=== PATIENT | female | born 1985 | race Caucasian/White ===

== ENCOUNTER 2020-08-22 15:00 | Outpatient (RCR) | payer BC | END 2020-08-28 | disposition home or self-care (01) | LOC: MKS.ESL.PT | DX: M54.5 Low back pain (principal) ==

== ENCOUNTER 2020-10-08 12:45 | Outpatient (RCR) | payer BC | END 2020-10-20 | disposition home or self-care (01) | LOC: MKS.ESL.PT | DX: M54.9 Dorsalgia, unspecified (principal); M79.651 Pain in right thigh ==